=== PATIENT | female | born 1995 | race Hispanic/Latino ===

== ENCOUNTER 2022-03-08 13:25 | Day surgery (SDC) | payer MEDICAID, OTHER ==
[2022-03-08 14:12] VITALS: BMI 37.0
[2022-03-08] MEDS ORDERED: hydrALAZINE 20 MG/ML VIAL SLOW IVP PRN (16:45)
== END 2022-03-08 16:40 | disposition home or self-care (01) ==
LOC: CSHLD/OP 13:25
PROVIDERS: ATTEND Family Medicine
DX: O47.1 False labor at or after 37 completed weeks of gestation (principal); Z3A.39 39 weeks gestation of pregnancy; Z79.899 Other long term (current) drug therapy
CPT/HCPCS: 99283

== ENCOUNTER 2022-03-09 00:32 | Inpatient (IN) | payer MEDICAID, OTHER, SELFPAY ==
[2022-03-09] MEDS ORDERED: hydrALAZINE 20 MG/ML VIAL SLOW IVP PRN ×3 (02:28→17:13)
[2022-03-09] MEDS ORDERED: HYDROcodone/Acetaminophen 5/325 mg Tablet PO PRN ×3 (02:28→17:13)
[2022-03-09] MEDS ORDERED: Ibuprofen 800 MG TAB PO PRN (02:28)
[2022-03-09] MEDS ORDERED: Promethazine HCl 25 MG/ML VIAL IM PRN ×3 (02:28→17:13)
[2022-03-09] MEDS ORDERED: Lidocaine 1% (PF) 30 ML VIAL SC PRN (02:28)
[2022-03-09] MEDS ORDERED: Ondansetron PF 4 MG/2 ML Vial IVP PRN ×3 (02:28→17:13)
[2022-03-09] MEDS ORDERED: NS w/ Oxytocin 30 units 500 ML IV SCH ×2 (02:30→17:13)
[2022-03-09] MEDS ORDERED: Lactated Ringer's 1,000 ML IV SCH (02:30)
[2022-03-09] MEDS ORDERED: Promethazine HCl 25 MG/ML VIAL IM SCH (02:30)
[2022-03-09] MEDS ORDERED: Morphine 10 MG/ML VIAL IM SCH (02:30)
[2022-03-09 06:15] LABS: Hemoglobin 10.6 g/dL (12.0-15.5); Mean Corpuscular HGB CONC 34.3 g/dL (32.0-36.0); Mean Corpuscular Hemoglobin 27.5 pg (27.0-33.0); Mean Corpuscular Volume 80.3 fl (81.6-98.3); Platelet Count 123 10x3/uL (150-450); RBC Distribution Width 15.7 % (11.5-14.5); Red Blood Cell (RBC) Count 3.85 10x6/uL (3.90-5.03); White Blood Cell (WBC) Count 8.6 10x3/uL (3.5-10.5)
[2022-03-09 06:39] VITALS: BMI 34.2
[2022-03-09 07:09] LABS: HBSAg Index 0.16 S/CO (0-0.99); Hep B Surf Ag Non-Reactive S/CO (NonReactive)
[2022-03-09 07:12] LABS: Syphilis Antibody Nonreactive (Nonreactive); Syphilis Antibody Index 0.02 S/CO (<1.00 Non-Reactive)
[2022-03-09] MEDS ORDERED: FENTANYL 500 MCG/10 ML VIAL 1,000 MCG in Sodium Chloride 0.9% 30 ML IV PRN (08:02)
[2022-03-09] MEDS ORDERED: Naloxone HCl 0.4 mg/ml Vial IV PRN ×2 (08:05→14:02)
[2022-03-09] MEDS ORDERED: Fentanyl 100 MCG/2 ML VIAL SLOW IVP SCH (08:15)
[2022-03-09 10:35] LABS: SARS-CoV-2 NAA Rapid Test Not Detected (NotDetected)
[2022-03-09] MEDS ORDERED: Metoclopramide HCl 10 MG/2 ML VIAL ONE (13:31)
[2022-03-09] MEDS ORDERED: Dexamethasone 4 mg/ml Vial ONE ×2 (13:31→14:32)
[2022-03-09] MEDS ORDERED: Ondansetron PF 4 MG/2 ML Vial ONE (13:31)
[2022-03-09] MEDS ORDERED: PROPOFOL 20 ML ONE (13:32)
[2022-03-09] MEDS ORDERED: Famotidine/PF 20 mg/2ml Vial SLOW IVP PRN (13:58)
[2022-03-09] MEDS ORDERED: Bicitra 30 ML UDCUP PO PRN (13:58)
[2022-03-09] MEDS ORDERED: Meperidine HCl/PF 25 MG/ML VIAL SLOW IVP PRN (13:59)
[2022-03-09] MEDS ORDERED: Fentanyl 100 MCG/2 ML VIAL SLOW IVP PRN (13:59)
[2022-03-09] MEDS ORDERED: Ondansetron HCl/PF 4 MG/2 ML Vial IVP PRN (13:59)
[2022-03-09] MEDS ORDERED: CEFAZOLIN 2 GM in Sodium Chloride 0.9% 100 ML IVPB SCH (14:00)
[2022-03-09] MEDS ORDERED: Azithromycin 500 MG in Sodium Chloride 0.9% 250 ML 250 ML IVPB SCH (14:00)
[2022-03-09] MEDS ORDERED: Promethazine HCl 25 MG SUPP PR PRN (14:02)
[2022-03-09] MEDS ORDERED: CEFAZOLIN 2 GM VIAL ONE (14:02)
[2022-03-09] MEDS ORDERED: Moisturizing Cream (Eucerin) 113 GM JAR TOP PRN (14:02)
[2022-03-09] MEDS ORDERED: Naloxone HCl 0.4 mg/ml Vial IVP PRN ×2 (14:02)
[2022-03-09] MEDS ORDERED: diphenhydrAMINE 50 MG/ML VIAL IVP PRN (14:02)
[2022-03-09] MEDS ORDERED: Azithromycin 500 MG VIAL ONE (14:02)
[2022-03-09] MEDS ORDERED: Methylergonovine 0.2 MG/ML VIAL ONE (14:04)
[2022-03-09] MEDS ORDERED: Communication Order-Pharmacy FS SCH (14:15)
[2022-03-09] MEDS ORDERED: Fentanyl 100 MCG/2 ML VIAL ONE ×3 (14:16→16:25)
[2022-03-09] MEDS ORDERED: Oxytocin 10 UNITS/ML VIAL ONE (14:23)
[2022-03-09] MEDS ORDERED: Ketorolac Tromethamine 30 MG/ML VIAL ONE (14:32)
[2022-03-09] MEDS ORDERED: Succinylcholine 200 MG/10 ml SYRINGE FS ONE (14:33)
[2022-03-09] MEDS ORDERED: Meperidine HCl/PF 25 MG/ML VIAL ONE (14:37)
[2022-03-09] MEDS ORDERED: Bisacodyl 10 MG SUPP PR PRN (17:13)
[2022-03-09] MEDS ORDERED: Boostrix 0.5 ML (Tdap) VIAL (>/=7 yrs of age) IM ONE (17:13)
[2022-03-09] MEDS ORDERED: Lanolin Ointment 7 GM TUBE TOP PRN (17:13)
[2022-03-09] MEDS ORDERED: Ketorolac Tromethamine 30 MG/ML VIAL IVP PRN (21:00)
[2022-03-09] MEDS: Ketorolac Tromethamine 30 MG/ML VIAL IVP SCH (21:37)
[2022-03-09] MEDS: Docusate 100 MG CAP PO SCH (21:38)
[2022-03-09] MEDS: Ferrous Sulfate 325 MG TAB PO SCH (21:41)
[2022-03-10] MEDS: Ketorolac Tromethamine 30 MG/ML VIAL IVP SCH ×2 (04:19→11:33)
[2022-03-10 05:09] LABS: Hemoglobin 8.6 g/dL (12.0-15.5); Mean Corpuscular HGB CONC 33.2 g/dL (32.0-36.0); Mean Corpuscular Hemoglobin 27.1 pg (27.0-33.0); Mean Corpuscular Volume 81.7 fl (81.6-98.3); Mean Platelet Volume 12.5 fl (7.4-10.4); Platelet Count 123 10x3/uL (150-450); RBC Distribution Width 15.8 % (11.5-14.5); Red Blood Cell (RBC) Count 3.17 10x6/uL (3.90-5.03); White Blood Cell (WBC) Count 14.6 10x3/uL (3.5-10.5)
[2022-03-10] MEDS: Simethicone Chewable 80 MG TAB PO PRN ×2 (08:34→21:27)
[2022-03-10] MEDS: Prenatal Vitamin 1 TAB PO SCH (08:34)
[2022-03-10] MEDS: Docusate 100 MG CAP PO SCH ×2 (08:34→20:07)
[2022-03-10] MEDS: Ferrous Sulfate 325 MG TAB PO SCH ×2 (08:34→20:07)
[2022-03-10] MEDS: HYDROcodone/Acetaminophen 5/325 mg Tablet PO PRN ×2 (11:50→20:07)
[2022-03-10] MEDS: Ibuprofen 800 MG TAB PO SCH ×2 (13:13→20:07)
[2022-03-11] MEDS: Ibuprofen 800 MG TAB PO SCH ×3 (05:30→21:19)
[2022-03-11] MEDS: Ferrous Sulfate 325 MG TAB PO SCH ×2 (08:21→21:19)
[2022-03-11] MEDS: Docusate 100 MG CAP PO SCH ×2 (08:22→21:19)
[2022-03-11] MEDS: Prenatal Vitamin 1 TAB PO SCH (08:22)
[2022-03-11] MEDS: HYDROcodone/Acetaminophen 5/325 mg Tablet PO PRN (13:28)
[2022-03-11 20:30] VITALS: TEMP 98.2
[2022-03-12] MEDS: Ibuprofen 800 MG TAB PO SCH (05:44)
[2022-03-12] MEDS: Docusate 100 MG CAP PO SCH (08:40)
[2022-03-12] MEDS: Ferrous Sulfate 325 MG TAB PO SCH (08:40)
[2022-03-12] MEDS: Prenatal Vitamin 1 TAB PO SCH (08:40)
[2022-03-12 08:50] VITALS: BP 139/82
== END 2022-03-12 13:15 | disposition home or self-care (01) | DRG 788 ==
LOC: CSHLD/OP 00:32 → CSHLD 04:32 → CSHPP 17:30
PROVIDERS: ADMIT Family Medicine; ATTEND Family Medicine
PROC: 10D00Z1 Extraction of Products of Conception, Low, Open Approach (ICD-10-PCS; principal; 2022-03-09)
DX: O69.81X0 Labor and delivery complicated by cord around neck, without compression, not applicable or unspecified (principal); O62.1 Secondary uterine inertia; O76 Abnormality in fetal heart rate and rhythm complicating labor and delivery; Z3A.39 39 weeks gestation of pregnancy; Z37.0 Single live birth; Z20.822 Contact with and (suspected) exposure to COVID-19; O32.4XX0 Maternal care for high head at term, not applicable or unspecified; D50.8 Other iron deficiency anemias; O90.81 Anemia of the puerperium
CPT/HCPCS: 51702; 85027; 86780; 86850; 86900; 86901; 87340; 99285; J1100; J1885; J2175; J2270; J2405; J2550; J2590; J2704; J2765; J3010; J3490; U0002